=== PATIENT | female | born 1945 | race Caucasian/White ===

== ENCOUNTER 2016-11-02 15:21 | Inpatient (IN) | payer MEDICARE ==
[~2016-11-02] VITALS: Ht 177.8 cm; Wt 84.6 kg
[2016-11-02] MEDS ORDERED: SODIUM CHLORIDE FLUSH 10ML SYR IVF ONE (16:00)
[2016-11-02 16:18] LABS: HEMOGLOBIN 12.9 g/dL (11.7-16.4)
[2016-11-02 16:41] LABS: ASPARTATE AMINO TRANSFERASE 60 U/L (15-37); BLOOD UREA NITROGEN 12 mg/dL (7-18)
[2016-11-02 16:45] LABS: IS PT STATUS REG ER OR PRE ER? YES
[2016-11-02] MEDS ORDERED: POLYETHYLENE GLYCOL 17 GM PACKET PO PRN (19:00)
[2016-11-02] MEDS ORDERED: ACETAMINOPHEN 325 MG TABLET PO PRN (19:00)
[2016-11-02] MEDS ORDERED: LABETALOL 5MG/ML, 20ML IV PRN (19:00)
[2016-11-02] MEDS ORDERED: ENALAPRILAT 1.25 MG/ML, 2ML IVPush PRN (19:00)
[2016-11-02] MEDS ORDERED: DOCUSATE 100 MG CAPSULE PO PRN (19:00)
[2016-11-02] MEDS ORDERED: ONDANSETRON 2MG/ML, 2ML IVP PRN (19:00)
[2016-11-02] MEDS ORDERED: LORazepam 2 MG/ML, 1ML IVPush PRN (19:00)
[2016-11-02] MEDS ORDERED: ZOLPIDEM 5MG TABLET PO PRN (19:00)
[2016-11-02] MEDS ORDERED: ASPIRIN 325 MG TABLET EC PO ONE (19:00)
[2016-11-02] MEDS ORDERED: BISACODYL 10 MG SUPP PR PRN (19:00)
[2016-11-02] MEDS ORDERED: ASPIRIN 81 MG TABLET EC PO ONE (19:30)
[2016-11-02 21:00] VITALS: BP 138/89
[2016-11-02 21:26] VITALS: BP 138/89
[2016-11-02] MEDS: SODIUM CHLORIDE 0.9% 1,000 ML IV SCH (21:36)
[2016-11-02] MEDS: ENOXAPARIN 40 MG/0.4 ML SQ SCH (21:38)
[2016-11-02] MEDS: NICOTINE 14MG/24 HR PATCH.TD24 TD SCH (21:38)
[2016-11-03 01:35] VITALS: BP 112/71
[2016-11-03] MEDS: ASPIRIN 81 MG TABLET EC PO SCH (06:48)
[2016-11-03 07:01] VITALS: BP 126/83
[2016-11-03 07:58] LABS: PATH.CAST-FLAG NOT PRESENT; SPERM-FLAG NOT PRESENT; SRC-FLAG NOT PRESENT; XTAL-FLAG NOT PRESENT; YLC-FLAG NOT PRESENT
[2016-11-03] MEDS: SODIUM CHLORIDE 0.9% 1,000 ML IV SCH ×2 (08:25→22:24)
[2016-11-03] MEDS: LOSARTAN 50MG TABLET PO SCH (08:25)
[2016-11-03 12:59] VITALS: BP 134/82
[2016-11-03] MEDS: NICOTINE 14MG/24 HR PATCH.TD24 TD SCH (19:00)
[2016-11-03 19:45] VITALS: BP 146/87
[2016-11-03] MEDS: ENOXAPARIN 40 MG/0.4 ML SQ SCH (20:16)
[2016-11-04 01:22] VITALS: BP 137/83
[2016-11-04] MEDS: ASPIRIN 81 MG TABLET EC PO SCH (06:19)
[2016-11-04 06:51] VITALS: BP 134/85
[2016-11-04] MEDS: SODIUM CHLORIDE 0.9% 1,000 ML IV SCH (07:00)
[2016-11-04] MEDS: LOSARTAN 50MG TABLET PO SCH (10:38)
[2016-11-04] MEDS ORDERED: GADOBUTROL 7.5 MMOL/7.5 ML PFS ONE (11:11)
[2016-11-04 13:14] VITALS: BP 168/99
[2016-11-04] MEDS ORDERED: LOSA50TA2 PO (14:36)
[2016-11-04] MEDS ORDERED: ASPI-621 PO (14:36)
== END 2016-11-04 17:21 | disposition home or self-care (01) | DRG 100 ==
LOC: ED 15:59 → SUATTDRO 18:18 → EDIP 18:36 → 4WST 20:30
PROC: 0T9B70Z Drainage of Bladder with Drainage Device, Via Natural or Artificial Opening (ICD-10-PCS; principal; 2016-11-02)
DX: G40.909 Epilepsy, unspecified, not intractable, without status epilepticus (principal); N17.0 Acute kidney failure with tubular necrosis; E87.1 Hypo-osmolality and hyponatremia; G81.91 Hemiplegia, unspecified affecting right dominant side; R47.1 Dysarthria and anarthria; R29.810 Facial weakness; D75.89 Other specified diseases of blood and blood-forming organs; R47.81 Slurred speech; F17.210 Nicotine dependence, cigarettes, uncomplicated; Z66 Do not resuscitate; I11.9 Hypertensive heart disease without heart failure; R53.1 Weakness; K76.0 Fatty (change of) liver, not elsewhere classified; Z90.710 Acquired absence of both cervix and uterus
CPT/HCPCS: 36415; 70450; 70544; 70551; 70552; 71010; 76700; 80053; 80061; 80307; 81001; 82607; 82746; 84443; 84484; 85025; 85610; 85730; 87086; 93005; 93306; 93880; 95819; A9585; J1650; 92523-GN; J7030

== ENCOUNTER → 2017-05-17 | Outpatient (CLI) | payer MEDICARE ==
[~2017-05-17] MED LIST: ASPI-621 PO; LOSA50TA2 PO
== END | disposition home or self-care (01) ==
LOC: CFH 08:25
PROVIDERS: ATTEND Psychiatry & Neurology Neurology
DX: I69.353 Hemiplegia and hemiparesis following cerebral infarction affecting right non-dominant side (principal); G93.9 Disorder of brain, unspecified; R94.02 Abnormal brain scan
CPT/HCPCS: 70553; 82565

== ENCOUNTER → 2017-10-03 | Outpatient (CLI) | payer MEDICARE | LOC: ROC 14:57 | PROVIDERS: ATTEND Radiology Radiation Oncology | DX: C76.51 Malignant neoplasm of right lower limb (principal) | CPT/HCPCS: 99214; G0463 ==

== ENCOUNTER 2018-05-13 21:34 | Emergency (ER) | payer MEDICARE ==
[~2018-05-13] VITALS: Ht 175.3 cm; Wt 84.0 kg
[2018-05-13] MEDS ORDERED: SODIUM CHLORIDE FLUSH 10ML SYR IVF ONE (23:00)
[2018-05-13] MEDS ORDERED: SODIUM CHLORIDE 0.9% 1,000ML IVBOLUS ONE (23:00)
[2018-05-13 23:28] LABS: BASOPHILS # (AUTO) 0.04 x10^3/uL (0-0.1); BASOPHILS % (AUTO) 1 % (0-1); EOSINOPHILS % (AUTO) 3 % (1-7); LYMPHOCYTES % (AUTO) 27 % (22-44); MD NO; MEAN CORPUSCULAR HEMOGLOBIN 33.6 pg (27.0-34.8); MEAN CORPUSCULAR VOLUME 98.9 fL (80-100); MEAN PLATELET VOLUME 7.6 fL (7.4-10.4); MONOCYTES # (AUTO) 0.43 x10^3/uL (0.2-0.8); MONOCYTES % (AUTO) 11 % (2-9); NEUTROPHILS % (AUTO) 59 % (42-75); PLATELET COUNT 211 x10^3/uL (130-400); RED BLOOD COUNT 3.83 x10^6/uL (3.82-5.3); RED CELL DISTRIBUTION WIDTH 13.9 % (9.6-15.2)
[2018-05-13 23:31] LABS: ALANINE AMINOTRANSFERASE 72 U/L (12-78); ALBUMIN 4.3 g/dL (3.4-5.0); ANION GAP 8 mmol/L (5-15); CALCIUM 9.6 mg/dL (8.5-10.1); CHLORIDE 99 mmol/L (98-107); CREATININE 1.15 mg/dL (0.55-1.02)
[2018-05-13 23:35] LABS: ALKALINE PHOSPHATASE 63 U/L (45-117); BILIRUBIN,TOTAL 0.8 mg/dL (0.2-1.0); TOTAL PROTEIN 7.6 g/dL (6.4-8.2); TROPONIN I < 0.015 ng/mL (0.000-0.045)
[2018-05-14 00:18] VITALS: BP 155/94
[2018-05-14 01:33] LABS: MICROSCOPIC AUTO
[2018-05-14 01:35] LABS: CULTURE INDICATED? YES
[2018-05-14] MEDS ORDERED: OMNIPAQUE 350 MG/ML, 100ML BOTTLE ONE (04:57)
== END 2018-05-14 01:39 | disposition home or self-care (01) ==
LOC: ED 23:21
DX: S39.012A Strain of muscle, fascia and tendon of lower back, initial encounter (principal); I10 Essential (primary) hypertension; R06.00 Dyspnea, unspecified; F17.200 Nicotine dependence, unspecified, uncomplicated; Z86.73 Personal history of transient ischemic attack (TIA), and cerebral infarction without residual deficits; X58.XXXA Exposure to other specified factors, initial encounter; Y93.89 Activity, other specified; Y92.89 Other specified places as the place of occurrence of the external cause; Y99.8 Other external cause status
CPT/HCPCS: 36415; 71275; 74174; 80053; 81001; 83690; 84484; 85025; 87086; 93005; 99285; J7030; Q9967

== ENCOUNTER → 2018-09-02 | Outpatient (CLI) | payer MEDICARE ==
[~2018-09-02] MED LIST changes: -ASPI-621 PO; +ASPI81TA45 PO; +GADOBUTROL 7.5 MMOL/7.5 ML PFS ONE
== END | disposition home or self-care (01) ==
LOC: RAD 16:52
PROVIDERS: ATTEND Psychiatry & Neurology Neurology
DX: G93.89 Other specified disorders of brain (principal); R90.82 White matter disease, unspecified; F17.200 Nicotine dependence, unspecified, uncomplicated; Z79.82 Long term (current) use of aspirin
CPT/HCPCS: 70553; A9585

== ENCOUNTER → 2018-10-30 | Outpatient (CLI) | payer MEDICARE ==
[~2018-10-30] MED LIST changes: -GADOBUTROL 7.5 MMOL/7.5 ML PFS ONE
== END | disposition home or self-care (01) ==
LOC: CARD 08:55
PROVIDERS: ATTEND Psychiatry & Neurology Neurology
DX: G40.89 Other seizures (principal)
CPT/HCPCS: 95819

== ENCOUNTER → 2019-07-18 | Outpatient (CLI) | payer MEDICARE | END | disposition home or self-care (01) | LOC: CVU 07:56 | PROVIDERS: ATTEND Family Medicine | DX: I10 Essential (primary) hypertension (principal); Z87.891 Personal history of nicotine dependence | CPT/HCPCS: 93922 ==

== ENCOUNTER → 2020-07-26 | Outpatient (CLI) | payer MEDICARE | END | disposition home or self-care (01) | LOC: CFH 14:00 | PROVIDERS: ATTEND Family Medicine | DX: Z12.31 Encounter for screening mammogram for malignant neoplasm of breast (principal); N60.02 Solitary cyst of left breast | CPT/HCPCS: 76641; 77063; 77067 ==